=== PATIENT | male | born 2005 | race Caucasian/White ===

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

== ENCOUNTER 2025-06-25 14:46 | Emergency (ER) | payer OTHER ==
[~2025-06-25] VITALS: Ht 180.3 cm; Wt 99.8 kg
[~2025-06-25 14:46] MED LIST changes: +Ondansetron4 MG PO
[2025-06-25] MEDS ORDERED: Acetaminophen/Hydrocodone 5 MG/325 MG TABLET PO ONE (15:25)
[2025-06-25] MEDS ORDERED: HYDROCODONE-AC1 EAC1 PO (18:10)
== END 2025-06-25 18:28 | disposition home or self-care (01) ==
LOC: ED 14:46
DX: S30.0XXA Contusion of lower back and pelvis, initial encounter (principal); W01.198A Fall on same level from slipping, tripping and stumbling with subsequent striking against other object, initial encounter; Y93.01 Activity, walking, marching and hiking; Y92.89 Other specified places as the place of occurrence of the external cause; Y99.8 Other external cause status